=== PATIENT | female | born 1985 | race Native Hawaiian/Other Pacific Islander ===

== ENCOUNTER 2017-08-19 10:50 | Outpatient (CLI) | payer OTHER ==
[~2017-08-19 10:50] MED LIST: METHADONE10 MG OR
[2017-08-19] MEDS ORDERED: METHADONE10 MG PO (11:54)
[2017-08-19] MEDS ORDERED: CLON0.5T36 PO (11:54)
== END 2017-08-19 10:53 | disposition short-term general hospital (02) ==
LOC: AMB 10:50
DX: M25.551 Pain in right hip (principal); M89.8X6 Other specified disorders of bone, lower leg; M79.651 Pain in right thigh; M25.571 Pain in right ankle and joints of right foot
CPT/HCPCS: A0425; A0427

== ENCOUNTER 2017-08-19 11:00 | Emergency (ER) | payer OTHER ==
[~2017-08-19] VITALS: Ht 154.9 cm; Wt 54.4 kg
[2017-08-19 11:08] VITALS: TEMP 101.1
[2017-08-19] MEDS ORDERED: CLON0.5T36 PO (11:54)
[2017-08-19] MEDS ORDERED: METHADONE10 MG PO (11:54)
[2017-08-19 13:15] VITALS: BP 98/63
== END 2017-08-19 13:15 | disposition home or self-care (01) ==
LOC: ED 11:00
DX: M51.36 Other intervertebral disc degeneration, lumbar region (principal); M79.604 Pain in right leg; X50.9XXA Other and unspecified overexertion or strenuous movements or postures, initial encounter
CPT/HCPCS: 96372; 99283; J1100; J2360

== ENCOUNTER 2017-08-20 22:24 | Outpatient (CLI) | payer OTHER ==
[~2017-08-20 22:24] MED LIST changes: +CLON0.5T36 PO; +METHADONE10 MG PO
== END 2017-08-20 22:28 | disposition short-term general hospital (02) ==
LOC: AMB 22:24
DX: M25.561 Pain in right knee (principal)
CPT/HCPCS: A0425; A0427

== ENCOUNTER 2017-08-20 22:41 | Emergency (ER) | payer OTHER ==
[~2017-08-20] VITALS: Ht 154.9 cm; Wt 54.4 kg
[2017-08-20 22:30] VITALS: TEMP 100.8
[2017-08-21 00:34] VITALS: BP 100/65
== END 2017-08-21 00:45 | disposition home or self-care (01) ==
LOC: ED 22:41
DX: M79.661 Pain in right lower leg (principal)
CPT/HCPCS: 99283

== ENCOUNTER 2018-01-30 16:39 | Outpatient (CLI) | payer OTHER ==
[2018-01-30 17:03] LABS: POTASSIUM 3.8 mmol/L (3.6-5.2)
[2018-01-30 17:37] LABS: PLATELET COUNT 292 K/uL (152-353)
== END 2018-01-30 19:29 | disposition home or self-care (01) ==
LOC: LABW 16:39
PROVIDERS: Nurse Practitioner
DX: R53.83 Other fatigue (principal)
CPT/HCPCS: 36415; 80053; 85027

== ENCOUNTER 2018-02-02 15:54 | Outpatient (CLI) | payer OTHER | END 2018-02-02 20:17 | disposition home or self-care (01) | LOC: RAD 15:54 | DX: R06.02 Shortness of breath (principal) ==

== ENCOUNTER 2018-05-07 15:05 | Outpatient (CLI) | payer OTHER ==
[2018-05-07] MEDS ORDERED: LEXAPRO20 MG PO (15:53)
== END 2018-05-07 15:08 | disposition short-term general hospital (02) ==
LOC: AMB 15:05
DX: R10.9 Unspecified abdominal pain (principal)
CPT/HCPCS: A0425; A0429

== ENCOUNTER 2018-05-07 15:10 | Emergency (ER) | payer OTHER ==
[~2018-05-07] VITALS: Ht 154.9 cm; Wt 44.5 kg
[2018-05-07 15:15] VITALS: TEMP 98.6
[2018-05-07] MEDS ORDERED: LEXAPRO20 MG PO (15:53)
[2018-05-07 15:56] LABS: PLATELET COUNT 371 K/uL (152-353)
[2018-05-07 16:59] LABS: POTASSIUM 3.5 mmol/L (3.6-5.2)
[2018-05-07 19:58] VITALS: BP 121/72
== END 2018-05-07 19:55 | disposition home or self-care (01) ==
LOC: ED 15:10
PROVIDERS: Internal Medicine
DX: R10.33 Periumbilical pain (principal)
CPT/HCPCS: 36415; 80053; 81025; 82150; 83690; 85027; 96374; 96375; 99284; J1885; J2405

== ENCOUNTER 2018-05-11 18:19 | Emergency (ER) | payer OTHER ==
[~2018-05-11] VITALS: Ht 154.9 cm; Wt 42.2 kg
[~2018-05-11 18:19] MED LIST changes: +LEXAPRO20 MG PO
[2018-05-11 19:36] VITALS: BP 138/70; TEMP 98.1
== END 2018-05-11 19:38 | disposition home or self-care (01) ==
LOC: ED 18:19
DX: K80.80 Other cholelithiasis without obstruction (principal); L03.317 Cellulitis of buttock
CPT/HCPCS: 99282

== ENCOUNTER 2018-05-14 19:45 | Emergency (ER) | payer OTHER ==
[~2018-05-14] VITALS: Ht 154.9 cm; Wt 40.8 kg
[2018-05-14 21:10] LABS: PLATELET COUNT 395 K/uL (152-353)
[2018-05-14 22:06] LABS: POTASSIUM 3.4 mmol/L (3.6-5.2)
[2018-05-14 23:52] VITALS: BP 130/83; TEMP 97.5
== END 2018-05-14 23:52 | disposition home or self-care (01) ==
LOC: ED 19:46
PROVIDERS: Family Medicine
DX: R10.84 Generalized abdominal pain (principal); F15.90 Other stimulant use, unspecified, uncomplicated
CPT/HCPCS: 36415; 80053; 80307; 81000; 85027; 87077; 87086; 87088; 87186; 96374; 96375; 99284; J1885; J3490

== ENCOUNTER 2018-07-16 04:49 | Outpatient (CLI) | payer OTHER | END 2018-07-16 04:53 | disposition short-term general hospital (02) | LOC: AMB 04:49 | DX: R06.02 Shortness of breath (principal); M54.5 Low back pain | CPT/HCPCS: A0425; A0429 ==

== ENCOUNTER 2018-07-16 04:58 | Emergency (ER) | payer OTHER ==
[~2018-07-16] VITALS: Ht 154.9 cm; Wt 40.8 kg
[2018-07-16 06:08] LABS: PLATELET COUNT 312 K/uL (152-353)
[2018-07-16 06:14] LABS: POTASSIUM 3.8 mmol/L (3.6-5.2); SODIUM 139 mmol/L (136-145)
[2018-07-16 08:11] VITALS: BP 125/80; TEMP 98.3
== END 2018-07-16 08:30 | disposition home or self-care (01) ==
LOC: ED 04:58
PROVIDERS: Emergency Medicine
DX: F15.10 Other stimulant abuse, uncomplicated (principal); I45.81 Long QT syndrome
CPT/HCPCS: 36415; 80053; 80307; 81000; 81025; 82550; 83735; 84484; 85027; 93005; 96361; 96374; 96375; 99284; J2060; J2405

== ENCOUNTER 2018-07-28 18:20 | Emergency (ER) | payer OTHER ==
[~2018-07-28] VITALS: Ht 154.9 cm; Wt 40.8 kg
[2018-07-28 18:22] VITALS: BP 96/63; TEMP 99
[2018-07-28] MEDS ORDERED: DIPH50CA30 PO (18:48)
[2018-07-28 19:54] LABS: PLATELET COUNT 236 K/uL (152-353)
[2018-07-28 20:07] LABS: POTASSIUM 3.4 mmol/L (3.6-5.2)
== END 2018-07-28 22:20 | disposition home or self-care (01) ==
LOC: ED 18:20
PROVIDERS: Emergency Medicine
DX: R10.84 Generalized abdominal pain (principal)
CPT/HCPCS: 80053; 80307; 81000; 81025; 85027; 87077; 87086; 87088; 87186; 99283; J1885

== ENCOUNTER 2019-01-20 13:37 | Outpatient (CLI) | payer OTHER ==
[~2019-01-20 13:37] MED LIST changes: +DIPH50CA30 PO
== END 2019-01-20 13:40 | disposition short-term general hospital (02) ==
LOC: AMB 13:37
DX: M79.661 Pain in right lower leg (principal)
CPT/HCPCS: A0425; A0427

== ENCOUNTER 2019-01-20 13:46 | Emergency (ER) | payer OTHER ==
[~2019-01-20] VITALS: Ht 154.9 cm; Wt 53.1 kg
[2019-01-20 16:41] VITALS: BP 116/74; TEMP 98.3
== END 2019-01-20 16:48 | disposition home or self-care (01) ==
LOC: ED 13:46
DX: M25.551 Pain in right hip (principal)
CPT/HCPCS: 96372; 99283; J1885

== ENCOUNTER 2019-01-21 11:47 | Emergency (ER) | payer OTHER ==
[~2019-01-21] VITALS: Ht 154.9 cm; Wt 53.1 kg
[2019-01-21 12:57] LABS: PLATELET COUNT 356 K/uL (152-353)
[2019-01-21 13:07] LABS: POTASSIUM 4.2 mmol/L (3.6-5.2)
[2019-01-21 13:22] LABS: PARTIAL THROMBOPLASTIN TIME 25.9 SECONDS (24.5-33.6)
[2019-01-22 13:35] VITALS: BP 101/66
== END 2019-01-22 13:35 | disposition other institution (70) ==
LOC: ED 11:47
PROVIDERS: Hospitalist
DX: F32.89 Other specified depressive episodes (principal); R45.851 Suicidal ideations; F15.10 Other stimulant abuse, uncomplicated
CPT/HCPCS: 36415; 80053; 80307; 80320; 80329; 81000; 81025; 85027; 85610; 85730; 93005; 96372; 96374; 99285; J1200; J1630; J1885

== ENCOUNTER 2019-08-14 11:05 | Emergency (ER) | payer OTHER ==
[~2019-08-14] VITALS: Ht 154.9 cm; Wt 53.1 kg
[2019-08-14 11:05] VITALS: TEMP 97.9
[2019-08-14 12:02] VITALS: BP 132/77
== END 2019-08-14 12:04 | disposition home or self-care (01) ==
LOC: ED 11:15
DX: L02.415 Cutaneous abscess of right lower limb (principal); G89.29 Other chronic pain
CPT/HCPCS: 87070; 87205; 96372; 99283; J1885

== ENCOUNTER 2019-10-10 17:08 | Emergency (ER) | payer OTHER | END 2019-10-10 17:18 | disposition home or self-care (01) | LOC: ED 17:08 | DX: L02.415 Cutaneous abscess of right lower limb (principal); M79.651 Pain in right thigh | CPT/HCPCS: 99281 ==

== ENCOUNTER 2021-08-11 11:35 | Outpatient (CLI) | payer OTHER | END 2021-08-11 19:03 | disposition home or self-care (01) | LOC: RAD 11:35 | PROVIDERS: ATTEND Nurse Practitioner | DX: M54.16 Radiculopathy, lumbar region (principal) ==